=== PATIENT | male | born 1985 | race Caucasian/White ===

== ENCOUNTER 2022-01-31 08:44 | Outpatient (CLI) | payer BC, SELFPAY ==
[2022-01-31 14:08] LABS: Basophils Percent Auto 0.5 % (0.0-3.0); Eosinophils Percent Auto 1.5 % (0.0-7.0); Hematocrit 44.2 % (37.0-53.0); Mean Corpuscular HGB Conc 34 gm/dL (32-36); Mean Corpuscular Hemoglobin 30 pg (26-34); Mean Corpuscular Volume 87 fL (80-100); Platelet Count* 251 K/uL (140-440); RDW Coefficient of Variation % 12.8 % (11.5-15.5); Red Blood Count 5.06 m/uL (4.30-5.90); White Blood Count* 4.13 K/uL (4.50-11.00)
[2022-01-31 14:38] LABS: Slide Review Reflex No
[2022-01-31 15:06] LABS: Albumin* 4.9 g/dL (3.3-5.0); Chloride* 99 mmol/L (96-114); Potassium* 4.3 mmol/L (3.6-5.1); Sodium* 140 mmol/L (135-149)
[2022-01-31 15:08] LABS: Creatinine* 0.8 mg/dL (0.5-1.5); Estimated Glomerular Filt Rate 119 ml/min
[2022-01-31 15:09] LABS: Alanine Aminotransferase* 47 U/L (4-50); Alkaline Phosphatase* 46 U/L (40-150); Aspartate Amino Transferase* 36 U/L (12-35); Bilirubin Total* 0.6 mg/dL (0.1-1.5); Blood Urea Nitrogen* 20 mg/dL (5-24); Carbon Dioxide* 30 mmol/L (20-32); Glucose* 99 mg/dL (60-115); Total Protein* 7.8 g/dL (6.0-8.3)
[2022-01-31 15:10] LABS: Calcium* 9.6 mg/dL (8.4-10.6)
[2022-01-31 15:12] LABS: C Reactive Protein* < 0.5 mg/dL (0.5-1.0)
== END 2022-01-31 08:45 | disposition home or self-care (01) ==
PROVIDERS: PCP Internal Medicine; Visit Provider Family Medicine
DX: H53.9 Unspecified visual disturbance (principal)
CPT/HCPCS: 80053; 84443; 85025; 86140

== ENCOUNTER 2022-02-28 07:00 | Outpatient (CLI) | payer BC, SELFPAY ==
--- NOTE | 2022-02-28 07:15 | CRLHL7_ITS ---
For Patients: As a result of the Century Cures Act, medical imaging exams and procedure reports are released immediately into your electronic medical record. You may view this report before your referring provider. If you have questions, please contact your health care provider. INDICATION: Visual deficit. TECHNIQUE: Brain MRI without contrast. The following sequences were obtained: Sagittal T1 weighted sequence. DWI and ADC mapping sequences. Axial FLAIR and HILLARY T2 weighted sequences. Susceptibility or GRE sequence. COMPARISON: None. FINDINGS: No evidence of acute ischemia. No evidence of acute or chronic intracranial blood products. No pathologic intracranial signal abnormality. No mass effect or herniation. No hydrocephalus or extra-axial collections. The pituitary gland, parasellar structures and optic chiasm are normal. Posterior fossa is normal. All the major intracranial vascular structures demonstrate normal flow-related signal. The orbital contents are normal. No calvarial or skull base marrow replacing process. No obstructive sinus disease. No extracranial soft tissue findings. IMPRESSION: 1. No significant intracranial pathology. Dictated by Be Zamora MD @ 02/28/2022 11:05:07 AM (Electronically Signed)
== END 2022-02-28 07:01 | disposition home or self-care (01) ==
LOC: MRI 07:01
PROVIDERS: PCP Internal Medicine; Visit Provider Family Medicine
DX: H53.9 Unspecified visual disturbance (principal)
CPT/HCPCS: 70551

== ENCOUNTER 2023-01-12 07:45 | Outpatient (CLI) | payer BC, SELFPAY ==
--- NOTE | 2023-01-12 08:00 | CRLHL7_ITS ---
For Patients: As a result of the Century Cures Act, medical imaging exams and procedure reports are released immediately into your electronic medical record. You may view this report before your referring provider. If you have questions, please contact your health care provider. Indication: Cervical stenosis Technique: Cervical spine 4 views, including flexion/extension Comparison: MRI 07/10/2019 IMPRESSION: Disc space narrowing and spurring at C6-7. No vertebral body compression fracture. No facet malalignment. No abnormal motion with flexion/extension. Dictated by Jason Michaels MD @ 01/12/2023 11:23:02 AM (Electronically Signed)
== END 2023-01-12 07:46 | disposition home or self-care (01) ==
LOC: RAD 07:47
PROVIDERS: PCP Internal Medicine; Visit Provider Orthopaedic Surgery Orthopaedic Surgery of the Spine
DX: M48.02 Spinal stenosis, cervical region (principal); M50.223 Other cervical disc displacement at C6-C7 level
CPT/HCPCS: 72050

== ENCOUNTER 2023-01-17 15:27 | Outpatient (CLI) | payer BC, SELFPAY | END 2023-01-17 15:28 | disposition home or self-care (01) | PROVIDERS: PCP Internal Medicine; Visit Provider Otolaryngology | DX: R42 Dizziness and giddiness (principal) | CPT/HCPCS: 86039; 86431; 86618 ==